=== PATIENT | male | born 1955 | race Caucasian/White ===

== ENCOUNTER 2017-08-13 19:07 | Emergency (ER) | payer SELFPAY ==
[2017-08-13] MEDS ORDERED: NS 0.9% 1000 ML* 1,000 ML IV ONE ×2 (20:30→21:47)
--- NOTE | 2017-08-13 21:14 | RAD ---
INDICATION: Shortness of breath. COMPARISON: No relevant prior exams available on the [facility] PACS for comparison. TECHNIQUE: Dual energy PA and routine lateral views of the chest were obtained. REPORT: Elevated lung volumes. No pulmonary infiltrate, focal pulmonary lesion, pleural effusion, pneumothorax. Mild cardiomegaly. Unremarkable central pulmonary vasculature and mediastinal contours. Sequela of previous RIGHT AC joint separation with elevation of the distal clavicle and advanced degenerative arthropathy. IMPRESSION: Elevated lung volumes suggest potential obstructive lung disease. No evidence for pneumonia. Cardiomegaly without evidence for pulmonary edema.
[2017-08-13 21:33] LABS: ABS Eosinophils 0.2 10^3/ul (0-0.6); Eosinophil % 0.7 % (0-6); Nucleated Red Blood Cells % 0
[2017-08-13 21:35] LABS: ABS Basophils 0 10^3/ul (0-0.2); ABS Lymphocytes 0.9 10^3/ul (1.0-4.8); ABS Monocytes 0.7 10^3/ul (0-0.8); ABS Neutrophils 23.4 10^3/ul (1.5-7.7); ABS Nucleated RBC 0 10^3/ul; Hematocrit 19 % (42-52); Lymphocyte % 3.7 % (25-47); Mean Corpuscular HGB Conc 33 g/dl (31-36); Mean Corpuscular Hemoglobin 29 pg (27-31); Mean Corpuscular Volume 88 fL (80-94); Mean Platelet Volume 9 um3 (7.4-10.4); Platelet Count 278 10^3/ul (150-450); Red Blood Count 2.16 10^6/ul (4.0-5.4); Red Cell Distribution Width 17 % (10.5-15); White Blood Count 25.2 10^3/ul (3.5-10.8)
[2017-08-13 21:36] LABS: Hemoglobin 6.3 g/dl (14.0-18.0)
[2017-08-13 21:44] LABS: EGFR Non-African American 9.4 (>60); INR 2.29 (0.77-1.02)
[2017-08-13] MEDS ORDERED: Vancomycin(*) 1,000 MG in NS 0.9% 250 ML* 250 ML IVPB ONE (21:49)
[2017-08-13] MEDS ORDERED: Piperacillin/Tazobac ADVAN(*) 3.375 GM in NS 0.9% 100 ML* 100 ML IVPB ONE (21:49)
[2017-08-13] MEDS ORDERED: Piperacillin/Tazobac ADVAN(*) 2.25 GM in NS 0.9% 100 ML* 100 ML IVPB ONE (21:51)
[2017-08-13] MEDS ORDERED: Dextrose 50% Syringe 50 ML* 25 GM/50 ML SYRINGE IV PUSH ONE (22:06)
[2017-08-13] MEDS ORDERED: Insulin REGULAR(*) 1 UNITS UNIT IV PUSH ONE (22:06)
[2017-08-13] MEDS ORDERED: Sodium Bicarbonate 8.4% IV* 50 ML VIAL IV ONE (22:07)
[2017-08-13] MEDS ORDERED: Calcium CHLORIDE 10% SYRINGE* 1 GM/10 ML IV ONE (22:08)
[2017-08-13] MEDS ORDERED: CALCIUM GLUCONATE* 1 GM/10 ML VIAL (in Pyxis) IV PUSH ONE (23:00)
[2017-08-13] MEDS ORDERED: Zosyn 3.375 GM IV - ED ONCE IVPB ONE ×2 (23:00)
--- NOTE | 2017-08-13 23:44 | ED ---
Norman Vila Gabriel, scribed for Dolores Gilbert MD on 08/13/17 at 2102 . Complex/Multi-Sys Presentation - HPI Summary HPI Summary: This patient is a 62 year old M [place] [facility] [place] his after being sent from his PCP for an elevated WBC and high potassium. Patient just recently moved here from [place] there he was admitted for 14 days and tested for leukemia. His biopsy came back negative but was diagnosed with A-Fib, anemia , and elevated uric acid in blood. - History Of Current Complaint Chief Complaint: EDGeneral Time Seen by Provider: 08/13/17 20:13 Hx Obtained From: Patient Onset/Duration: Still Present Timing: Constant Severity Currently: Mild Severity Initially: Mild Associated Signs And Symptoms: Negative: Back Pain - Allergies/Home Medications Allergies/Adverse Reactions: Allergies Allergy/AdvReac Type Severity Reaction Status Date / Time No Known Allergies Allergy Verified 08/13/17 19:25 PMH/Surg Hx/FS Hx/Imm Hx Cardiovascular History: Reports: Hx Atrial Fibrillation Respiratory History: Reports: Hx Asthma, Hx Chronic Obstructive Pulmonary Disease (COPD) Infectious Disease History: No Infectious Disease History: Denies: Traveled Outside the [place] in Last 30 Days - Family History Known Family History: Negative: Hypertension - Social History Alcohol Use: None Substance Use Type: Reports: None Smoking Status (MU): Former Smoker Review of Systems Negative: Rash Negative: Slurred Speech All Other Systems Reviewed And Are Negative: Yes Physical Exam - Summary Physical Exam Summary: VITAL SIGNS: Reviewed. GENERAL: Patient is a well-developed, thin male who is lying comfortable in the stretcher. Patient is not in any acute respiratory distress. HEAD AND FACE: No signs of trauma. No ecchymosis, hematomas or skull depressions. No sinus tenderness. EYES: PERRLA, EOMI x 2, No injected conjunctiva, no nystagmus. EARS: Hearing grossly intact. Ear canals and tympanic membranes are within normal limits. MOUTH: Oropharynx within normal limits. NECK: Supple, trachea is midline, no adenopathy, no JVD, no carotid bruit, no c- spine tenderness, neck with full ROM. CHEST: Symmetric, no tenderness at palpation LUNGS: Clear to auscultation bilaterally. No wheezing or crackles. CVS: Regular rate and rhythm, S1 and S2 present, no murmurs or gallops appreciated. ABDOMEN: Soft, non-tender. No signs of distention. No rebound no guarding, and no masses palpated. Bowel sounds are normal. EXTREMITIES: FROM in all major joints, no edema, no cyanosis or clubbing. NEURO: Alert and oriented x 3. No acute neurological deficits. Speech is normal and follows commands. SKIN: Dry and warm Triage Information Reviewed: Yes Vital Signs On Initial Exam: Initial Vitals Temp Pulse Resp BP Pulse Ox 100.5 F 75 18 108/65 98 08/13/17 19:20 08/13/17 19:20 08/13/17 19:20 08/13/17 19:20 08/13/17 19:20 Vital Signs Reviewed: Yes - Tori Coma Scale Coma Scale Total: 15 Diagnostics - Vital Signs Vital Signs Temp Pulse Resp BP Pulse Ox 08/13/17 19:20 100.5 F 75 18 108/65 98 - Laboratory Lab Results: Lab Results 08/13/17 08/13/17 08/13/17 Range/Units 20:15 20:15 20:15 WBC 25.2 H (3.5-10.8) 10^3/ul RBC 2.16 L (4.0-5.4) 10^6/ul Hgb 6.3 L* (14.0-18.0) g/dl Hct 19 L (42-52) % MCV 88 (80-94) fL MCH 29 (27-31) pg MCHC 33 (31-36) g/dl RDW 17 H (10.5-15) % Plt Count 278 (150-450) 10^3/ul MPV 9 (7.4-10.4) um3 Neut % (Auto) 92.8 H (38-83) % Lymph % (Auto) 3.7 L (25-47) % Wise % (Auto) 2.6 (1-9) % Eos % (Auto) 0.7 (0-6) % Baso % (Auto) 0.2 (0-2) % Absolute Neuts (auto) 23.4 H (1.5-7.7) 10^3/ul Absolute Lymphs (auto) 0.9 L (1.0-4.8) 10^3/ul Absolute Monos (auto) 0.7 (0-0.8) 10^3/ul Absolute Eos (auto) 0.2 (0-0.6) 10^3/ul Absolute Basos (auto) 0 (0-0.2) 10^3/ul Absolute Nucleated RBC 0 10^3/ul Immature Gran % 21 H (0-9) % Neutrophils % 76 (38-83) % Band Neutrophils % 20 H (0-8) % Lymphocytes % 2 L (25-47) % Eosinophils % 1 (0-6) % Metamyelocytes % 1 (0-2) % Nucleated RBC % 0 Normal RBC Morphology Not Reportable Hypochromasia 2+ Microcytosis 2+ Macrocytosis 1+ INR (Anticoag Therapy) 2.29 H (0.77-1.02) APTT 39.9 H (26.0-36.3) seconds Sodium 132 L (133-145) mmol/L Potassium 5.7 H (3.5-5.0) mmol/L Chloride 103 (101-111) mmol/L Carbon Dioxide 16 L (22-32) mmol/L Anion Gap 13 H (2-11) mmol/L BUN 110 H (6-24) mg/dL Creatinine 6.06 H (0.67-1.17) mg/dL Est GFR ( Amer) 12.1 (>60) Est GFR (Non-Af Amer) 9.4 (>60) BUN/Creatinine Ratio 18.2 (8-20) Glucose 114 H (70-100) mg/dL Lactic Acid (0.5-2.0) mmol/L Calcium 8.4 L (8.6-10.3) mg/dL Total Bilirubin 0.30 (0.2-1.0) mg/dL AST 11 L (13-39) U/L ALT 15 (7-52) U/L Alkaline Phosphatase 84 (34-104) U/L C-Reactive Protein 35.37 H (< 5.00) mg/L Total Protein 7.3 (6.4-8.9) g/dL Albumin 3.2 (3.2-5.2) g/dL Globulin 4.1 H (2-4) g/dL Albumin/Globulin Ratio 0.8 L (1-3) 08/13/17 Range/Units 20:15 WBC (3.5-10.8) 10^3/ul RBC (4.0-5.4) 10^6/ul Hgb (14.0-18.0) g/dl Hct (42-52) % MCV (80-94) fL MCH (27-31) pg MCHC (31-36) g/dl RDW (10.5-15) % Plt Count (150-450) 10^3/ul MPV (7.4-10.4) um3 Neut % (Auto) (38-83) % Lymph % (Auto) (25-47) % Wise % (Auto) (1-9) % Eos % (Auto) (0-6) % Baso % (Auto) (0-2) % Absolute Neuts (auto) (1.5-7.7) 10^3/ul Absolute Lymphs (auto) (1.0-4.8) 10^3/ul Absolute Monos (auto) (0-0.8) 10^3/ul Absolute Eos (auto) (0-0.6) 10^3/ul Absolute Basos (auto) (0-0.2) 10^3/ul Absolute Nucleated RBC 10^3/ul Immature Gran % (0-9) % Neutrophils % (38-83) % Band Neutrophils % (0-8) % Lymphocytes % (25-47) % Eosinophils % (0-6) % Metamyelocytes % (0-2) % Nucleated RBC % Normal RBC Morphology Hypochromasia Microcytosis Macrocytosis INR (Anticoag Therapy) (0.77-1.02) APTT (26.0-36.3) seconds Sodium (133-145) mmol/L Potassium (3.5-5.0) mmol/L Chloride (101-111) mmol/L Carbon Dioxide (22-32) mmol/L Anion Gap (2-11) mmol/L BUN (6-24) mg/dL Creatinine (0.67-1.17) mg/dL Est GFR ( Amer) (>60) Est GFR (Non-Af Amer) (>60) BUN/Creatinine Ratio (8-20) Glucose (70-100) mg/dL Lactic Acid 0.9 (0.5-2.0) mmol/L Calcium (8.6-10.3) mg/dL Total Bilirubin (0.2-1.0) mg/dL AST (13-39) U/L ALT (7-52) U/L Alkaline Phosphatase (34-104) U/L C-Reactive Protein (< 5.00) mg/L Total Protein (6.4-8.9) g/dL Albumin (3.2-5.2) g/dL Globulin (2-4) g/dL Albumin/Globulin Ratio (1-3) Result Diagrams: 08/13/17 20:15 08/13/17 20:15 Lab Statement: Any lab studies that have been ordered have been reviewed, and results considered in the medical decision making process. - Radiology CXR Radiology Interpretation Completed By: Radiologist - Elevated lung volumes suggest potential obstructive lung disease. No evidence for pneumonia. Cardiomegaly without evidence for pulmonary edema. ED physician has reviewed this radiology report. - EKG 20:52 Cardiac Rate: NL EKG Rhythm: Sinus Rhythm - at 72 BPM EKG Interpretation: LVH. normal axis. no schemic changes Complex Multi-Symp Course/Dx Assessment/Plan: This patient is a 62 year old M [place] [facility] [place] his after being sent from his PCP for an elevated WBC and high potassium. Patient just recently moved here from [place] there he was admitted for 14 days and tested for leukemia. His biopsy came back negative but was diagnosed with A-Fib, anemia, and elevated uric acid in blood. An EKG reveals NSR. CXR reveals, per radiologist, Elevated lung volumes suggest potential obstructive lung disease. No evidence. for pneumonia. Cardiomegaly without evidence for pulmonary edema. . Test results with no significant abnormalities except for Hgb of 6.3. We discussed patient care with Dr. Beltrán and he recommended transfer due [place] [facility] [place]. Patient will be transferred to [facility] with follow up from doctor Kumar. The patient is agreeable with this plan. - Diagnoses Provider Diagnoses: Renal failure - Physician Notifications Discussed Care Of Patient With: Jeffery Nichols MD Time Discussed With Above Provider: 22:46 Instructed by Provider To: Transfer - he recommended transfer due to [facility] [place]. Discharge - Discharge Plan Condition: Stable Disposition: TRANS HIGHER LVL OF CARE FAC Referrals: Torsten Vasques PA [Primary Care Provider] - Consult Consult: 23:11 Discussed transfer with [facility] and the accepting doctor is Dr. Kumar. So the patient will be transferred to [facility] ED The documentation as recorded by the Norman sánchez Gabriel accurately reflects the service I personally performed and the decisions made by me, Dolores Gilbert MD.
[2017-08-14 00:15] VITALS: BP 100/53
== END 2017-08-14 00:17 | disposition short-term general hospital (02) ==
LOC: ED 19:07
DX: N19 Unspecified kidney failure (principal); I48.91 Unspecified atrial fibrillation; Z79.01 Long term (current) use of anticoagulants
CPT/HCPCS: 36415; 71046; 80053; 83605; 85025; 85610; 85730; 86140; 93005; 96360; 96361; 99285; J0610; J2543